=== PATIENT | female | born 1995 | race Two or more races ===

== ENCOUNTER 2019-04-24 22:17 | Emergency (ER) | payer SELFPAY ==
[~2019-04-24] VITALS: Ht 152.4 cm; Wt 88.0 kg
[2019-04-24 22:17] VITALS: BP 138/79
--- NOTE | 2019-04-24 23:35 | NUR ---
Patient discharged to home in stable condition. Written and verbal after care instructions given. Patient verbalizes understanding of instruction.
--- NOTE | 2019-04-24 23:36 | NUR ---
pt was also provided w/ prescriptions upon discharge.
== END 2019-04-24 23:39 | disposition home or self-care (01) ==
LOC: ER 22:22
DX: H60.93 Unspecified otitis externa, bilateral (principal); H66.93 Otitis media, unspecified, bilateral